=== PATIENT | male | born 1965 | race Caucasian/White ===

== ENCOUNTER 2016-10-18 17:56 | Emergency (ER) | payer SELFPAY ==
[2016-10-18 18:13] VITALS: BP 155/98; PULSE 90; RESP 14; TEMP 99.1; O2SAT 93
[2016-10-18] MEDS ORDERED: IBUPROFEN 200 MG TAB PO ONE (18:32)
--- NOTE | 2016-10-18 18:53 | UCPHY ---
H & P Patient Type: Established HPI/ROS: This patient complains of 48 hours of fevers, myalgias and cough. He states that the cough is primarily a dry hacky cough. He reports 2 days of fatigue as well. He had loose stools yesterday that have resolved today. He has partial improvement from ibuprofen and notes no other exacerbating or alleviating factors. Patient is had coughing and sore throat intermittently since July and has had a primary care physician visit and ENT visit. He feels that his cough improved but did not entirely resolved prior to the last 48 hours when symptoms worsened. He reports other times is life is occasionally had ongoing cough. ROS: No other constitutional symptoms. HEENT: He has associated nasal congestion for 40 hours. No ear pain. No significant sore throat or difficulty eating food. No belly pain or other GI symptoms besides the loose stool mentioned above. 10 point ROS is otherwise negative Past Medical/Surgical History: Recent cough in sore throat prior to this illness as detailed in HPI. Smoking Status: Former smoker Physical Exam: General Appearance: Alert, no distress. Eyes: Pupils equal and round no pallor or injection. ENT, Mouth: Mucous membranes moist. Nose: Clear discharge. No sinus tenderness to percussion. Ears: External canals and TMs clear bilaterally. Respiratory: There are no retractions, lungs are clear to auscultation with exception of faint expiratory wheeze when he coughs. No rales or rhonchi are noted. Cardiovascular: Regular rate and rhythm. Gastrointestinal: Abdomen is soft and nontender, no masses, bowel sounds normal. Neurological: Alert with no deficits. Skin: Warm and dry, no rashes. Musculoskeletal: Neck is supple nontender. Psychiatric: Mood and affect are normal DIFFERENTIAL DIAGNOSIS: After history and physical exam differential diagnosis was considered for influenza, other viral bronchitis, reactive airway disease, doubt pneumonia Constitutional: Initial Vital Signs Temperature (C) 37.3 C 10/18/16 18:12 Heart Rate 90 10/18/16 18:12 Respiratory Rate 14 10/18/16 18:12 Blood Pressure 155/98 H 10/18/16 18:12 O2 Sat (%) 93 10/18/16 18:12 O2 Delivery Mode Room Air Allergies/Adverse Reactions: Sulfa (Sulfonamide Antibiotics) Allergy (Intermediate, Verified 07/16/15 16:32) Rash Home Medications: Medication Instructions Recorded METFORMIN HCL 07/09/10 SIMVASTATIN 07/09/10 AZITHROMYCIN [Z-PACK] 250 mg PO DAILY #6 tab 08/19/16 Benzonatate [Tessalon Pearles (RX)] 100 mg PO TID PRN #30 cap 08/19/16 Guaifenesin/Codeine Phos [Codeine 15 ml PO Q6 #236 liquid 08/19/16 10 mg-Guai 300 mg Liq] Albuterol Hfa Anes Only [Proair 2 puffs IH Q4 PRN #1 mdi 10/18/16 Hfa Icu (*)] Fluticasone Hfa 220 Mcg [Flovent 2 puffs IH DAILY #1 mdi 10/18/16 220 MCG Hfa MDI (*)] Oseltamivir Phosphate [Tamiflu 75 75 mg PO BID #10 cap 10/18/16 mg (*)] MDM/Departure - MDM Diagnostics: Rapid influenza is positive for influenza A. Medications Given: Discontinued Medications Ibuprofen (Motrin) 600 mg PO EDNOW ONE Stop: 10/18/16 18:33 Last Admin: 10/18/16 18:35 Dose: 600 mg ED Course/Re-evaluation: Counseled the patient regarding influenza a. I think he may also have a bit of her reactive airway history causing ongoing cough and counseled regarding this. Currently no rales or other concerning findings on his exam. He is very stable I think will do well with Tamiflu and albuterol - Depart Disposition: Home, Routine, Self-Care Clinical Impression: Influenza A Condition: Fair Instructions: Influenza (ED) Additional Instructions: Diagnosis: Influenza A This illness cause of viral bronchitis often in the cough is attributable to this. Plan: Tamiflu to stop influenza replication short duration of illness. Ibuprofen for fevers and chills Tylenol in addition if needed Albuterol inhaler with spacer-2 puffs every 4 hours as needed for cough, wheeze or shortness of breath If your cough last beyond the next week despite the albuterol then add Flovent steroid inhaler in addition Follow up with primary care physician for any cough last beyond the next 10 days despite the treatment plan No work until ear fever has resolved for 24 hours or more Stand Alone Forms: Work Excuse Prescriptions: Albuterol Hfa Anes Only [Proair Hfa Icu (*)] 2 puffs IH Q4 PRN #1 mdi PRN Reason: Wheezing Fluticasone Hfa 220 Mcg [Flovent 220 MCG Hfa MDI (*)] 2 puffs IH DAILY #1 mdi Oseltamivir Phosphate [Tamiflu 75 mg (*)] 75 mg PO BID #10 cap Referrals: Jv Kent MD [Primary Care Provider] - As per Instructions - PQRS PQRS Measurement: NA
== END 2016-10-18 19:02 | disposition home or self-care (01) ==
LOC: CED 17:56
DX: J10.1 Influenza due to other identified influenza virus with other respiratory manifestations (principal); Z87.891 Personal history of nicotine dependence
CPT/HCPCS: 87400-PO; 99214-PO; G0463-PO

== ENCOUNTER 2018-11-19 19:16 | Emergency (ER) | payer OTHER ==
[2018-11-19] MEDS ORDERED: NS 1,000 ML IV ONE ×2 (19:54→21:42)
[2018-11-19] MEDS ORDERED: ACETAMINOPHEN 500 MG TAB PO ONE (19:55)
[2018-11-19] MEDS ORDERED: MECLIZINE HCL 25 MG TAB PO ONE (19:55)
[2018-11-19] MEDS ORDERED: ONDANSETRON 4 MG/2 ML VIAL IVP ONE (19:55)
--- NOTE | 2018-11-19 20:06 | EDPHY ---
H & P Stated Complaint: dizziness,nausea,vomiting for 2 days Time Seen by Provider: 11/19/18 19:26 HPI/ROS: This patient reports a feeling of dizziness that he describes as more vertiginous than lightheaded over the past 2 days. He developed associated headache after the onset of the dizziness this frontal location, 5/10 intensity with no exacerbating factors achy in nature. He reports that the headache was abrupt in onset during exertion. He reports the onset has headache was abrupt. He does not recall having headache like this in the past. He currently has ongoing nausea. He reports associated fatigue. His dizziness and headache worsen with movement. He has not tried any medications prior to arrival. He reports no other exacerbating factors. ROS: Constitutional: No fevers HEENT: No recent URI symptoms. No ear pain change in hearing or tinnitus. No sore throat. Pulmonary: No cough shortness of breath Cardiovascular: No chest pain, heart palpitations or peripheral swelling. GI: No abdominal pain. No hematemesis. Normal bowel movements. Integumentary: No skin rash diaphoresis or pallor Neuro: No confusion. No focal numbness tingling other than baseline paresthesias left arm the attributes to wearing his elbow brace for recent elbow injury. Musculoskeletal: Moderate left elbow pain since injury 3 months ago. Currently undergoing physical therapy and wearing a brace. Denies any neck stiffness or pain. 10 point review of symptoms is performed and otherwise negative with exception of pertinent positives and negatives listed in HPI and ROS Source: Patient, Family (His also provides history) Exam Limitations: No limitations - Personal History Current Tetanus Diphtheria and Acellular Pertussis (TDAP): Yes Tetanus Vaccine Date: 2000 - Medical/Surgical History PMH: He reports hypertension is last 2 visits to physicians over the past couple months. Prior to that he had no Hypertension Fyx-vhctucc-zyutxjstd diabetes elevated sugars to 280 today. 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 HEENT: Is no external evidence of trauma on exam. Eyes: Pupils are equal and reactive to light. Extraocular motions are intact. Optic fundi: Clear with no papilledema or hemorrhage. Nose atraumatic. Ears: Clear bilaterally with no hemotympanum. Oropharynx: No dental trauma or malocclusion. No intraoral lacerations. Eyes: Pupils are equal and reactive to light. Extraocular motions are intact. Optic fundi: Clear with no papilledema or hemorrhage. Lungs: Clear to auscultation bilaterally Neck: Supple no meningismus. Cardiac: Regular rate and rhythm no murmur gallop or rub. Abdomen: Soft nontender no organomegaly Neuro: GCS of 15. Cranial nerves II through XII intact. Cerebellar exam is normal as judged by symmetric rapid hand movements bilaterally. No pronator drift. No sensory or motor deficits are appreciated. Initial differential diagnosis: Migraine, tension headache, [employer] lesion, intracranial bleed Constitutional: Initial Vital Signs Temperature (C) 36.6 C 11/19/18 19:29 Heart Rate 72 11/19/18 19:29 Respiratory Rate 14 11/19/18 19:29 Blood Pressure 162/109 H 11/19/18 19:29 O2 Sat (%) 94 11/19/18 19:29 O2 Delivery Mode Room Air Allergies/Adverse Reactions: Sulfa (Sulfonamide Antibiotics) Allergy (Intermediate, Verified 11/19/18 19:26) Rash Home Medications: Medication Instructions Recorded METFORMIN HCL 07/09/10 SIMVASTATIN 07/09/10 Fluticasone Nasal [Flonase Nasal 2 sprays NASAL DAILY #1 mdi 11/19/18 [place] (RX)] Glyburide 11/19/18 Meclizine HCl [Meclizine HCl 25 mg 25 mg PO BID PRN #20 tab 11/19/18 (RX,OTC)] Prilosec 11/19/18 Medical Decision Making - Diagnostics Imaging Results: Imaging Impressions Head CT 11/19/18 20:08 Impression: Mild paranasal sinus disease. Otherwise, no acute intracranial process. Findings and recommendations discussed with HAILE GONZALEZ at 2033 hour, . Head CTA 11/19/18 21:50 Impression: Normal CT angiogram of the head. Findings and recommendations discussed with HAILE GONZALEZ at 2245ur, 2018. Imaging: Discussed imaging studies w/ life tester outboard motors Radiologist ED Course/Re-evaluation: IV normal saline bolus Zofran with improvement in nausea but incomplete resolution. After review of CT scan of head and conversation with our radiologist Saw he -negative for intracranial bleed comp patient is treated with Tylenol p.o. And meclizine. Still had vertiginous symptoms thereafter but headache improved to 3 /10 at 9:35 p.m.. A performed [place] test and found no significant nystatin miss without maneuver/negative [place]pike. He did feel slight increased vertigo with head tilt to the left and abrupt reclining but again no nystagmus. I then added Reglan and Benadryl the patient's treatment due to ongoing nausea and headache. Labs are reviewed-POC CBC is normal, basic metabolic panel is normal exception of a glucose of 281. In addition is hyperglycemia is treated with insulin 4 units regular subcu Discussion: Patient presents with abrupt onset headache during exertion with associated dizziness and vomiting. Episode was yesterday and patient also has a family history and first-degree relative with ruptured aneurysm. Although his regular CT head is negative at this point, being greater than 6 hr out from onset of headache think this failure carver warrants further workup for potential subarachnoid. He has 3 positive points for the auto subarachnoid rules-greater than 40, abrupt onset and onset during exertion. Patient wishes to avoid a lumbar puncture, will proceed with CT angio head CT angio head is also normal. Patient's headache resolved with last round of medications and his vertigo has improved though still persistent mild degree. His blood pressure improved to 130s over 80s without further intervention. His mental status remains normal. Counseled patient regarding all of his studies. Repeat fingerstick blood sugar is 199 at 11:00 p.m.. He understands the small risk of still missing a intracranial bleed without having lumbar puncture but wishes to proceed home without further workup at this time. He understands need to return emergency department should he have any significant recurrence of headaches despite over- the-counter medications, onset of confusion, neck stiffness or any other concerns. Will plan to treat his peripheral vertigo with Flonase steroid nasal spray, meclizine and Zofran. He will follow up with ENT-Dr. Woods if vertigo is not resolving over the next 2-5 days. - Data Points Laboratory Results: 11/19/18 20:06 POC Sodium 139 mEq/L mEq/L (135-145) POC Potassium 4.2 mEq/L mEq/L (3.3-5.0) POC Chloride 101.0 mEq/L mEq/L (97-110) POC Total CO2 26 mEq/L mEq/L (22-31) POC BUN 13 mg/dL mg/dL (7-23) POC Creatinine 0.8 mg/dL mg/dL (0.7-1.3) POC Glucose 281 mg/dL H mg/dL (70-100) POC Calcium 9.6 mg/dL mg/dL (8.5-10.4) Medications Given: Discontinued Medications Acetaminophen (Tylenol) 1,000 mg PO EDNOW ONE Stop: 11/19/18 19:56 Last Admin: 11/19/18 20:10 Dose: 1,000 mg Diphenhydramine HCl (Benadryl Injection) 25 mg IVP EDNOW ONE Stop: 11/19/18 21:29 Last Admin: 11/19/18 21:45 Dose: 25 mg Sodium Chloride (Ns) 1,000 mls @ 0 mls/hr IV EDNOW ONE; Wide Open PRN Reason: Protocol Stop: 11/19/18 19:55 Last Admin: 11/19/18 20:01 Dose: 1,000 mls Sodium Chloride (Ns) 1,000 mls @ 0 mls/hr IV ONCE ONE; Wide Open PRN Reason: Protocol Stop: 11/19/18 21:43 Last Admin: 11/19/18 21:46 Dose: 1,000 mls Insulin Human Regular (Humulin R) 4 unit SC EDNOW ONE Stop: 11/19/18 21:30 Last Admin: 11/19/18 21:40 Dose: 4 units Ketorolac Tromethamine (Toradol) 15 mg IVP EDNOW ONE Stop: 11/19/18 21:08 Last Admin: 11/19/18 21:11 Dose: 15 mg Meclizine HCl (Meclizine Hcl) 25 mg PO EDNOW ONE Stop: 11/19/18 19:56 Last Admin: 11/19/18 20:11 Dose: 25 mg Metoclopramide HCl (Reglan Injection) 10 mg IVP EDNOW ONE Stop: 11/19/18 21:29 Last Admin: 11/19/18 21:45 Dose: 10 mg Ondansetron HCl (Zofran) 4 mg IVP EDNOW ONE Stop: 11/19/18 19:56 Last Admin: 11/19/18 20:09 Dose: 4 mg Point of Care Test Results: CBC CBC Collection Date 11/19/18 CBC Collection Time 20:02 WBC 4.91 RBC 4.84 HGB 15.5 HCT 43.9 PLT 197 Neut # 1.94 Neut 39.6 LYMPH # 2.52 LYMPH 51.3 MCV 90.7 Chemistry 11/19/18 20:06 POC Sodium 139 mEq/L mEq/L (135-145) POC Potassium 4.2 mEq/L mEq/L (3.3-5.0) POC Chloride 101.0 mEq/L mEq/L (97-110) POC Total CO2 26 mEq/L mEq/L (22-31) POC BUN 13 mg/dL mg/dL (7-23) POC Creatinine 0.8 mg/dL mg/dL (0.7-1.3) POC Glucose 281 mg/dL H mg/dL (70-100) POC Calcium 9.6 mg/dL mg/dL (8.5-10.4) Departure - Departure Disposition: Home, Routine, Self-Care Clinical Impression: Vascular headache, not intractable, Vertigo Vomiting Qualifiers: Vomiting type: unspecified Vomiting Intractability: non-intractable Nausea presence: with nausea Qualified Code(s): R11.2 - Nausea with vomiting, unspecified Condition: Good Instructions: Migraine Headache (ED) Additional Instructions: Diagnoses: 1. Vascular headache 2. Vomiting 3. Peripheral vertigo Plan: Flonase steroid nasal spray Zofran for nausea vomiting if needed Meclizine for vertigo if needed This Tylenol and ibuprofen for headaches as needed No work tomorrow Follow-up with Dr. Woods-ENT specialist if you have ongoing symptoms that are not resolving over the next 2-5 days with treatment plan Return emergency department for any significant worsening despite treatment plan Referrals: Pablito Rivera DO [Primary Care Provider] - As per Instructions Lena Cunningham MD [Medical Doctor] - As per Instructions Prescriptions: Fluticasone Nasal [Flonase Nasal [place] (RX)] 2 sprays NASAL DAILY #1 mdi Meclizine HCl [Meclizine HCl 25 mg (RX,OTC)] 25 mg PO BID PRN #20 tab PRN Reason: vertigo
[2018-11-19] MEDS ORDERED: KETOROLAC 15 MG/1 ML SDV IVP ONE (21:07)
[2018-11-19] MEDS ORDERED: METOCLOPRAMIDE 10 MG/2 ML VIAL IVP ONE (21:28)
[2018-11-19] MEDS ORDERED: INSULIN REGULAR HUMAN 100 UNIT/ML UNIT SC ONE (21:29)
[2018-11-19] MEDS ORDERED: IOPAMIDOL (ISOVUE 370) 100 ML BTL IV ONE (22:06)
[2018-11-19] MEDS ORDERED: ONDANSETRON 4MG PREPACK#2 BTL TAKEHOME ONE (22:53)
--- NOTE | 2018-11-19 23:02 | CPEKG ---
Test Reason : OPEN Blood Pressure : / mmHG Vent. Rate : 074 BPM Atrial Rate : 074 BPM P-R Int : 120 ms QRS Dur : 091 ms QT Int : 395 ms P-R-T Axes : 020 -25 -08 degrees QTc Int : 439 ms Sinus rhythm Borderline left axis deviation Borderline T abnormalities, inferior leads Confirmed by Haile Gonzalez ([id number]) on 11/19/2018 11:02:12 PM Referred By: HAILE GONZALEZ Confirmed By:Haile Gonzalez
[2018-11-19 23:39] VITALS: BP 136/84
== END 2018-11-19 23:17 | disposition home or self-care (01) ==
LOC: CED 19:16
DX: G44.1 Vascular headache, not elsewhere classified (principal); R42 Dizziness and giddiness; R11.2 Nausea with vomiting, unspecified; E11.65 Type 2 diabetes mellitus with hyperglycemia; E86.9 Volume depletion, unspecified; E78.5 Hyperlipidemia, unspecified; K21.9 Gastro-esophageal reflux disease without esophagitis; F17.200 Nicotine dependence, unspecified, uncomplicated; Z88.2 Allergy status to sulfonamides
CPT/HCPCS: 70450-PO; 70496-PO; 80048-ER; 85025-QW-ER; 96361-ER; 96372-ER; 96374-ER; 96375-ER; 99285-ER; J1200; J1815; J1885; J2405; J2765; Q9967